=== PATIENT | female | born 1955 ===

== ENCOUNTER 2022-10-29 06:35 | Day surgery (SDC) | payer OTHER ==
[~2022-10-29 06:35] MED LIST: B12 ACTIVE1000 MCG PO; CELEBREX50 MG PO; COZAAR100 MG PO; HORIZANT300 MG PO; LIPITOR40 MG PO; METFORMIN HCL500 M3 PO; PEPCID40 MG PO; PRILOSEC OTC20 MG PO
[2022-10-29] MEDS ORDERED: PERCOCET 5-3251 EACH PO (10:54)
== END 2022-10-29 14:00 | disposition home or self-care (01) ==
LOC: CIR.AMB 06:35
PROVIDERS: ATTEND Surgery
DX: D35.1 Benign neoplasm of parathyroid gland (principal); E21.0 Primary hyperparathyroidism; Z91.018 Allergy to other foods; I10 Essential (primary) hypertension; E11.9 Type 2 diabetes mellitus without complications; Z79.84 Long term (current) use of oral hypoglycemic drugs